=== PATIENT | female | born 1985 | race African-American/Black ===

== ENCOUNTER 2016-09-20 15:35 | Inpatient (IN) | payer OTHER ==
[~2016-09-20] VITALS: Ht 182.9 cm; Wt 155.9 kg
[~2016-09-20 15:35] MED LIST: ADDERALL20 MG; LOPRESSOR25 MG PO; PROVENTIL HFA6.7 GM IH; ZITHROMAX Z-PA250 MG PO
[2016-09-20 16:06] VITALS: BP 115/71
[2016-09-20] MEDS ORDERED: PRENATAL TABLE1 EAC3 PO (16:55)
[2016-09-20 18:20] LABS: EOSINOPHIL (%) 0.5 % (0-5); EOSINOPHIL COUNT 0.1 K/uL (0-0.3); IMMATURE GRANULOCYTE (%) 0.3 % (0.0-0.7); LYMPHOCYTE COUNT 3.1 K/uL (1.0-2.8); MONOCYTE (%) 7.6 % (3-12); NEUTROPHIL (%) 68.6 % (45-76); NEUTROPHIL COUNT 9.4 K/uL (1.8-6.4)
[2016-09-20 18:46] LABS: HEMATOCRIT 36.1 % (36.0-46.0); MCH 27.9 PG (29.0-34.0); MCHC 33.5 G/DL (30.0-36.0); MCV 83.2 FL (83-99); MEAN PLAT.VOLUME 13.1 uM^3 (9.5-12.4); PLAT.SUFFICIENCY ADEQUATE; PLATELET COUNT 175 K/uL (156-360); RBC DIS.WIDTH-CV 14.7 % (11.8-14.6); RBC DIS.WIDTH-SD 44.6 % (39-53); RED BLOOD COUNT 4.34 M/uL (3.80-5.20); USER ID VLB; WHITE BLOOD COUNT 13.6 K/uL (4.1-10.2)
[2016-09-20 19:30] VITALS: BP 126/89
[2016-09-20 21:16] VITALS: BP 136/80
[2016-09-20 22:08] VITALS: BP 137/91
[2016-09-20 23:22] VITALS: BP 127/85
[2016-09-21] VITALS (16 sets, daily range): BP systolic 104–139; BP diastolic 65–90
[2016-09-21] MEDS ORDERED: MOTRIN800 MG PO (07:35)
[2016-09-21] MEDS ORDERED: PERCOCET 5/31 TABLET PO (07:35)
[2016-09-22 03:29] VITALS: BP 97/64
[2016-09-22 07:30] LABS: EOSINOPHIL (%) 0.6 % (0-5); EOSINOPHIL COUNT 0.1 K/uL (0-0.3); HEMATOCRIT 27.5 % (36.0-46.0); IMMATURE GRANULOCYTE (%) 0.3 % (0.0-0.7); LYMPHOCYTE COUNT 1.7 K/uL (1.0-2.8); MCH 27.7 PG (29.0-34.0); MCHC 33.1 G/DL (30.0-36.0); MCV 83.6 FL (83-99); MEAN PLAT.VOLUME 12.3 uM^3 (9.5-12.4); MONOCYTE COUNT 1.6 K/uL (0-0.8); NEUTROPHIL (%) 71.8 % (45-76); NEUTROPHIL COUNT 8.6 K/uL (1.8-6.4); PLATELET COUNT 132 K/uL (156-360); RBC DIS.WIDTH-CV 14.9 % (11.8-14.6); RBC DIS.WIDTH-SD 45.6 % (39-53); RED BLOOD COUNT 3.29 M/uL (3.80-5.20); WHITE BLOOD COUNT 11.9 K/uL (4.1-10.2)
[2016-09-22 07:51] VITALS: BP 121/65
[2016-09-22 11:56] VITALS: BP 112/64
[2016-09-22 15:29] VITALS: BP 114/55
[2016-09-22 19:43] VITALS: BP 123/65
[2016-09-22 23:10] VITALS: BP 130/71
[2016-09-23 03:05] VITALS: BP 107/52
[2016-09-23 07:10] VITALS: BP 126/76
[2016-09-23 11:07] VITALS: BP 111/66
[2016-09-23 14:48] VITALS: BP 109/68
== END 2016-09-23 17:50 | disposition home or self-care (01) | DRG 765 ==
LOC: LDRP-OP 15:35 → 2WEST 15:36 → LDRP-OP 10-19 19:31
PROVIDERS: Midwife; Obstetrics & Gynecology
PROC: 3E033VJ Introduction of Other Hormone into Peripheral Vein, Percutaneous Approach (ICD-10-PCS; principal; 2016-09-20)
PROC: 3E0P7GC Introduction of Other Therapeutic Substance into Female Reproductive, Via Natural or Artificial Opening (ICD-10-PCS; principal; 2016-09-20)
PROC: 10D00Z1 Extraction of Products of Conception, Low, Open Approach (ICD-10-PCS; 2016-09-21)
PROC: 4A1H74Z Monitoring of Products of Conception, Cardiac Electrical Activity, Via Natural or Artificial Opening (ICD-10-PCS; 2016-09-21)
DX: O76 Abnormality in fetal heart rate and rhythm complicating labor and delivery (principal); O62.1 Secondary uterine inertia; O36.8930 Maternal care for other specified fetal problems, third trimester, not applicable or unspecified; O69.81X0 Labor and delivery complicated by cord around neck, without compression, not applicable or unspecified; O99.214 Obesity complicating childbirth; E66.01 Morbid (severe) obesity due to excess calories; Z68.42 Body mass index [BMI] 45.0-49.9, adult; Z3A.40 40 weeks gestation of pregnancy; Z37.0 Single live birth; Z88.0 Allergy status to penicillin
CPT/HCPCS: 85025; 85460; 86850; 86900; 86901; G0378; J0690; J1200; J1580; J2274; J2405; J2765; J3010; J7050; J7120

== ENCOUNTER 2017-05-06 19:49 | Emergency (ER) | payer BC ==
[~2017-05-06] VITALS: Ht 180.3 cm; Wt 152.0 kg
[~2017-05-06 19:49] MED LIST changes: +MOTRIN800 MG PO; +PERCOCET 5/31 TABLET PO; +PRENATAL TABLE1 EAC3 PO
[2017-05-06 20:32] LABS: HEMATOCRIT 33.6 % (36.0-46.0); MCH 25.6 PG (29.0-34.0); MCHC 32.4 G/DL (30.0-36.0); MCV 79.1 FL (83-99); PLATELET COUNT 194 K/uL (156-360); RBC DIS.WIDTH-CV 16.4 % (11.8-14.6); RBC DIS.WIDTH-SD 47.1 % (39-53); RED BLOOD COUNT 4.25 M/uL (3.80-5.20); WHITE BLOOD COUNT 10.4 K/uL (4.1-10.2)
[2017-05-06 20:43] LABS: CHLORIDE 107 mEq/L (99-109); POTASSIUM 3.6 mEq/L (3.7-5.4); SODIUM 136 mEq/L (136-147)
[2017-05-06 20:45] LABS: GLUCOSE 99 mg/dL (70-99)
[2017-05-06 20:47] LABS: ANION GAP 9 MEQ/L (2-14)
[2017-05-06 20:49] LABS: GFR ESTIMATE (CALCULATED) > 59 mL/min/
[2017-05-06 20:50] LABS: UREA NITROGEN (BUN) 7 mg/dL (9-23)
[2017-05-06 21:16] LABS: QUANTITATIVE HCG 105250.8 MIU/ML
[2017-05-06 23:20] VITALS: BP 117/57
== END 2017-05-06 23:20 | disposition home or self-care (01) ==
LOC: RME 19:49 → EME 19:49 → RME 23:20
PROVIDERS: Emergency Medicine
DX: O20.0 Threatened abortion (principal); Z3A.08 8 weeks gestation of pregnancy
CPT/HCPCS: 76801; 80048; 84702; 85027; 99281; 99284

== ENCOUNTER 2017-12-05 11:18 | Outpatient (CLI) | payer OTHER ==
[2017-12-05] VITALS (7 sets, daily range): BP systolic 121–134; BP diastolic 66–85
[2017-12-05 12:12] LABS: BASOPHIL (%) 0.2 % (0-1); EOSINOPHIL (%) 0.7 % (0-5); EOSINOPHIL COUNT 0.1 K/uL (0-0.3); HEMATOCRIT 31.4 % (36.0-46.0); HEMOGLOBIN 10.2 G/DL (11.9-15.5); IMMATURE GRANULOCYTE (%) 0.7 % (0.0-0.7); LYMPHOCYTE (%) 20.9 % (15-42); LYMPHOCYTE COUNT 1.9 K/uL (1.0-2.8); MCH 27.1 PG (29.0-34.0); MCHC 32.5 G/DL (30.0-36.0); MCV 83.3 FL (83-99); MONOCYTE (%) 9.6 % (3-12); MONOCYTE COUNT 0.9 K/uL (0-0.8); NEUTROPHIL (%) 67.9 % (45-76); NEUTROPHIL COUNT 6.1 K/uL (1.8-6.4); PLATELET COUNT 181 K/uL (156-360); RBC DIS.WIDTH-CV 14.6 % (11.8-14.6); RBC DIS.WIDTH-SD 43.8 % (39-53); RED BLOOD COUNT 3.77 M/uL (3.80-5.20)
[2017-12-05 12:37] LABS: ALBUMIN 2.9 G/DL (3.2-4.8); ALKALINE PHOSPHATASE 112 IU/L (3-129); ALT (GPT) 8 IU/L (3-49); AST (GOT) 11 IU/L (2-34); CHLORIDE 107 MEQ/L (99-109); CREATININE 0.7 MG/DL (0.6-1.3); GFR ESTIMATE (CALCULATED) > 59 mL/min/; GLUCOSE 76 mg/dL (70-99); POTASSIUM 4.1 MEQ/L (3.7-5.4); SODIUM 137 MEQ/L (136-147); TOTAL BILIRUBIN 0.4 MG/DL (0.0-1.0); TOTAL PROTEIN 6.3 G/DL (6.4-8.3); UREA NITROGEN (BUN) 4 mg/dL (9-23)
[2017-12-05 13:18] LABS: UR CREATININE CONCENTRATION 47.2 MG/DL
== END 2017-12-05 13:45 | disposition home or self-care (01) ==
LOC: LDRP-OP 11:18 → 2WEST 11:19
PROVIDERS: Advanced Practice Midwife
DX: O26.893 Other specified pregnancy related conditions, third trimester (principal); R03.0 Elevated blood-pressure reading, without diagnosis of hypertension; Z3A.38 38 weeks gestation of pregnancy
CPT/HCPCS: 59025; 80053; 82570; 84156; 85025; G0378

== ENCOUNTER 2017-12-13 06:16 | Inpatient (IN) | payer OTHER ==
[~2017-12-13] VITALS: Ht 180.3 cm; Wt 158.2 kg
[~2017-12-13 06:16] MED LIST changes: +PRENATAL TABLE1 EACH PO
[2017-12-13] MEDS ORDERED: MOTRIN800 MG PO (09:02)
[2017-12-13] MEDS ORDERED: PERCOCET 5/31 TABLET PO (09:02)
[2017-12-13 09:20] LABS: AMPHETAMINE NEGATIVE (500 ng/mL); BARBITURATES NEGATIVE (200 ng/mL); BENZODIAZEPINES NEGATIVE (150 ng/mL); BUPRENORPHINE NEGATIVE (10 ng/mL); COCAINE NEGATIVE (150 ng/mL); METHADONE NEGATIVE (200 ng/mL); METHAMPHETAMINE NEGATIVE (500 ng/mL); OPIATES (MORPHINE) NEGATIVE (100 ng/mL); OXYCODONE NEGATIVE (100 ng/mL); PHENCYCLIDINE NEGATIVE (25 ng/mL); PROPOXYPHENE NEGATIVE (300 ng/mL); THC CANNABINOIDS NEGATIVE (50 ng/mL); TRICYCLIC ANTIDEPRESSANTS NEGATIVE (300 ng/mL)
[2017-12-13] MEDS ORDERED: LOVENOX40 MG/0.4 SC (11:04)
[2017-12-13 22:32] VITALS: BP 122/57
[2017-12-13 22:52] VITALS: BP 124/70
[2017-12-14 03:46] VITALS: BP 121/59
[2017-12-14 08:45] VITALS: BP 111/66
[2017-12-14 11:04] LABS: BASOPHIL (%) 0.2 % (0-1); EOSINOPHIL (%) 0.7 % (0-5); EOSINOPHIL COUNT 0.1 K/uL (0-0.3); HEMOGLOBIN 8.9 G/DL (11.9-15.5); IMMATURE GRANULOCYTE (%) 0.4 % (0.0-0.7); LYMPHOCYTE (%) 14.6 % (15-42); LYMPHOCYTE COUNT 1.5 K/uL (1.0-2.8); MCH 26.8 PG (29.0-34.0); MCHC 31.8 G/DL (30.0-36.0); MCV 84.3 FL (83-99); MONOCYTE (%) 11.4 % (3-12); MONOCYTE COUNT 1.2 K/uL (0-0.8); NEUTROPHIL (%) 72.7 % (45-76); NEUTROPHIL COUNT 7.4 K/uL (1.8-6.4); PLATELET COUNT 157 K/uL (156-360); RBC DIS.WIDTH-CV 15.1 % (11.8-14.6); RBC DIS.WIDTH-SD 45.6 % (39-53); RED BLOOD COUNT 3.32 M/uL (3.80-5.20); WHITE BLOOD COUNT 10.1 K/uL (4.1-10.2)
[2017-12-14 15:41] VITALS: BP 119/85
[2017-12-15 12:44] VITALS: BP 103/57
[2017-12-15 23:00] VITALS: BP 120/73
[2017-12-16 07:52] VITALS: BP 134/78
== END 2017-12-16 14:41 | disposition home or self-care (01) | DRG 765 ==
LOC: 2WEST 06:16 → 2SOUTH 08:32 → 2WEST 12-16 14:41
PROVIDERS: Obstetrics & Gynecology
PROC: 10D00Z1 Extraction of Products of Conception, Low, Open Approach (ICD-10-PCS; principal; 2017-12-13)
DX: O34.211 Maternal care for low transverse scar from previous cesarean delivery (principal); O99.214 Obesity complicating childbirth; E66.01 Morbid (severe) obesity due to excess calories; Z68.41 Body mass index [BMI] 40.0-44.9, adult; Z3A.38 38 weeks gestation of pregnancy; Z37.0 Single live birth
CPT/HCPCS: 36415; 85025; 86850; 86900; 86901; J0330; J1100; J1580; J1650; J2210; J2274; J2405; J2590; J3010; J7050; J7120